=== PATIENT | male | born 1945 | race Caucasian/White ===

== ENCOUNTER → 2017-03-17 | Outpatient (CLI) | payer MEDICARE, BC ==
--- NOTE | 2017-03-17 09:27 | RAD ---
Indication dull pain in the chest. Frontal and lateral views of the chest were obtained. No prior imaging of the chest is available. Heart size is at the upper limits of normal. There is no focal infiltrate. Significant pleural fluid is not seen. There is no pneumothorax. Slight elevation of the right hemidiaphragm is noted, likely incidental. IMPRESSION: No acute or focal process is seen in the chest
== END | disposition home or self-care (01) ==
LOC: DXRADRC 08:38
PROVIDERS: ATTEND Physician Assistant Medical
DX: R07.89 Other chest pain (principal)
CPT/HCPCS: 71020